=== PATIENT | female | born 1965 | race Two or more races ===

== ENCOUNTER 2022-04-20 11:59 | Emergency (ER) | payer MEDICARE, MEDICAID, SELFPAY ==
--- NOTE | ~2022-04-20 | CT_ITS ---
EXAMINATION: CTA CHEST CT ABDOMEN AND PELVIS WITH CONTRAST CLINICAL INFORMATION: Shortness of breath. Abdominal pain. Nausea and vomiting. COMPARISON: Ultrasound of abdomen 04/20/2022 TECHNIQUE: A noncontrast localizer was performed, followed by the administration of 85 mL Omnipaque [address] of the chest was then performed. Coronal and sagittal reformatted and 3-D technique MIP images of the chest were completed at the CT scanner and reviewed on the PACS workstation. No adverse effects were reported. Images were then performed through the abdomen and pelvis. Coronal and sagittal reformatted images performed at CT scanner by technologist. [This CT examination was performed using dose optimization techniques as appropriate, variously including the following: *Automated exposure control *Adjustment of mA and/or kV according to patient size (this includes techniques or standardized protocols for targeted exams where dose is matched to indication/reason for exam; i.e. extremities or head) *Use of iterative reconstruction technique] DLP: 676 mGy-cm. FINDINGS: Breathing motion limits exam. CTA CHEST Vascular: The main pulmonary artery, secondary and tertiary branches of the pulmonary artery are normally opacified with no evidence of pulmonary embolism. Mediastinum: There is significant cardiomegaly. Contrast reflux into the inferior vena cava and hepatic veins to the elevated right heart pressure. No evidence of septal bowing however. There is no pericardial effusion. No mediastinal mass or significant lymphadenopathy. Thyroid unremarkable. CORONARY ARTERIES: Volume of coronary calcification:Small volume of coronary artery calcification. Lungs: Breathing motion limits exam. There are a few small scattered groundglass opacities in the lungs bilaterally likely infectious or inflammatory etiology. There is linear atelectasis at both lung bases. Fluid: Bilateral pleural effusions. Moderate volume on the right and small on the left. Axilla: No significant lymphadenopathy. CT SCAN ABDOMEN/PELVIS: Liver, Gallbladder and Biliary Tree: The liver is normal in size, shape, and attenuation. Right lobe of liver measures 17 cm superior inferior. Vague area of enhancement at the posterior right lobe and left lobe of liver subcapsular lesion without evidence of distinct mass or lesion. This is likely transient enhancement.. No focal hepatic lesion or biliary ductal dilatation is present. Gallbladder partially distended. There is fluid around the gallbladder gallbladder fossa. This raises concern for acute cholecystitis. The fluid does extend down to the duodenal sweep. Pancreas: Pancreas is of normal size and contour without evidence of mass or peripancreatic duct dilatation. Spleen: Spleen is of normal size. Small volume of low attenuating fluid along the inferior splenic margin. Adrenal Glands: Right adrenal gland is normal. Left adrenal gland not well seen due to motion. Kidneys and Ureters: Left kidney is atrophic with decreased enhancement of the parenchyma compared to the right kidney. Right kidney measures 8.9 cm in length. The left kidney measures 7.8 cm. No hydronephrosis. No renal or ureteral stone. Bladder: Unremarkable. Gastrointestinal Tract: There are scattered diverticula of the colon. There is no diverticulitis. There is no bowel wall thickening /edema. There is no bowel obstruction. There is a moderate to large volume of stool in the colon. The appendix is nonvisualized . The small bowel loops are unremarkable. The stomach is normal. There is no hiatal hernia. MESENTERY: Fluid around the gallbladder and extending along the duodenal sleep anterior to the spleen. Small volume of fluid in the cul-de-sac. No focal mass or inflammation. No free air. Abdominal Wall: No significant hernia is appreciated. Lymph Nodes: Normal. Vascular: Atherosclerotic vascular calcifications of aorta and iliac arteries. No aneurysm. Pelvic Viscera: Unremarkable. Osseous Structures: Unremarkable. CT/CT angio chest PE protocol IMPRESSION: CT CHEST: 1. No evidence of pulmonary embolism. 2. Bilateral pleural effusions. Bibasilar atelectasis. 3. Cardiomegaly. Elevated right heart pressure. CT ABDOMEN PELVIS: 1. Fluid around the gallbladder fossa and extending along the duodenal sweep. This raises concern for acute cholecystitis. 2. Small volume of fluid in the cul-de-sac. 3. Atrophic left kidney. 4. Diverticulosis of the colon. There is no acute abnormality of the bowel.
--- NOTE | ~2022-04-20 | US_ITS ---
EXAMINATION: US ABDOMEN COMPLETE CLINICAL INFORMATION: Nausea, vomiting and abdominal pain. COMPARISON: None TECHNIQUE: Real-time imaging of the abdominal viscera. This study is limited secondary to the patient's inability to adequately move. FINDINGS: PANCREAS: Normal. ABDOMINAL AORTA: The proximal and mid segments are normal in caliber. The distal aorta was obscured by bowel gas INFERIOR VENA CAVA: Visualized portions are normal. LIVER: Normal. The liver is normal in size. The liver contour is normal. Parenchymal echogenicity is normal. No focal hepatic lesion. There is no intrahepatic biliary duct dilatation seen. GALLBLADDER: There is fluid present in the wall of the gallbladder which is thickened at 0.9 cm. No gallstones are seen. Alfonso's sign is negative. COMMON BILE DUCT: Normal in caliber measuring 0.4 cm in diameter. RIGHT KIDNEY: No hydronephrosis. No renal calculi or focal parenchymal lesions. The kidney measures 8.6 cm in maximum dimension. LEFT KIDNEY: No hydronephrosis. No renal calculi or focal parenchymal lesions. The kidney measures 7.1 cm in maximum dimension. SPLEEN: Normal. The spleen measures 5.6 cm in maximum dimension. FREE FLUID: No ascites. Right and left pleural effusions are seen.. US/US abdomen complete IMPRESSION: 1. Thickened edematous gallbladder wall with fluid in the wall. No gallstones are seen. Negative Alfonso's sign. Findings are concerning for acalculous cholecystitis. HIDA scan may be useful. 2. Bilateral pleural effusions.
--- NOTE | ~2022-04-20 | XR_ITS ---
EXAMINATION: XR CHEST CLINICAL INFORMATION: Anxiety, chest pain, shortness of breath, nausea and vomiting COMPARISON: None TECHNIQUE: 2 views of the chest were obtained. FINDINGS: There is mild cardiomegaly. There is a suggestion of some mild upper zone redistribution. The lungs are mildly hyperinflated. Bibasilar infiltrates/atelectasis present. No pleural effusions are seen. There are some mild thickening of the minor fissure. XR/XR chest 2V IMPRESSION: Mild cardiomegaly with question of mild pulmonary vascular congestion. Bibasilar infiltrates/atelectasis.
[2022-04-20 12:03] VITALS: BP 139/91; PULSE 96; O2SAT 98
[2022-04-20 12:06] VITALS: BP 104/81; PULSE 110; RESP 22; TEMP 35.7; O2SAT 97; BMI 25.2
--- NOTE | 2022-04-20 12:08 | ED_ITS ---
HPI - Anxiety General Chief Complaint: Anxiety Stated Complaint: ANXIETY, SOB Time Seen by Provider: 04/20/22 13:14 Related Data Home Medications Medication Instructions Recorded Confirmed atorvastatin 80 mg tablet 1 tab PO DAILY 04/20/22 bisoprolol fumarate 10 mg tablet 1 tab PO DAILY 04/20/22 bupropion HCl 150 mg tablet,12 hr 1 tab PO QAM 04/20/22 sustained-release citalopram 20 mg tablet 1 tab PO DAILY 04/20/22 clopidogrel 75 mg tablet 1 tab PO DAILY 04/20/22 fluticasone fur. 200 mcg-umeclid 1 puff inhalation DAILY 04/20/22 62.5 mcg-vilant 25 mcg inhalat.powder (Trelegy Ellipta) furosemide 20 mg tablet 1 tab PO BID blood pressure 04/20/22 gabapentin 300 mg capsule 1 cap PO TID 04/20/22 lisinopril 10 mg tablet 1 tab PO DAILY 04/20/22 olanzapine 10 mg tablet 1 tab PO DAILY 04/20/22 pantoprazole 40 mg tablet,delayed 1 tab PO BID 04/20/22 release potassium chloride 20 mEq 1 tab PO DAILY 04/20/22 tablet,extended release tramadol 50 mg tablet 1 tab PO BID PRN Pain 04/20/22 trazodone 50 mg tablet 1 tab PO DAILY 04/20/22 verapamil 180 mg 24 hr 1 cap PO DAILY 04/20/22 capsule,extended release warfarin 1 mg tablet 1 tab PO DAILY 04/20/22 warfarin 3 mg tablet 1 tab PO DAILY 04/20/22 Allergies Allergy/AdvReac Type Severity Reaction Status Date / Time No Known Allergies Allergy Verified 04/20/22 12:09 [facility] Social History Social History Alcohol intake: current Smoked in Last 30 Days: Yes Use of substances other than those prescribed or required for medical reasons: Refusing to respond Advance Directives: No Advance Directives Information Provided: No Physical Exam Vital Signs: Vital Signs: Last Vital Signs Temp 98.2 F 04/20/22 16:12 Pulse 112 H 04/20/22 16:12 Resp 34 H 04/20/22 16:12 BP 150/43 H 04/20/22 16:12 Pulse Ox 93 04/20/22 16:12 O2 Del Method 04/20/22 16:12 BMI result Body Mass Index 25.2 Course Course Course Narrative: TRACY-12:20PM - 57-year-old female with a past medical history of anxiety not on any medication presenting to the ER more multiple complaints which include generalized fatigue/malaise with increasing anxiety along with nausea/vomiting and chest tightness for the past 2 weeks worse today. Reports she is unable to keep anything down. Denies any SI/HI/auditory visual hallucinations or thoughts of self-injury. Reports that she smokes marijuana denies any other drug usage. Denies any alcohol usage. Denies any other symptoms complaints or concerns at this time. Plan: Will obtain labs, COVID/RSV/flu swab, chest x-ray and EKG. Patient will be sent to the waiting room to be evaluated in the ED. Medications Administered Discontinued Medications Generic Name Dose Route Start Last Admin Trade Name Freq PRN Reason Stop Dose Admin Phytonadione 10 mg/ Sodium 51 mls @ 51 mls/hr 04/20/22 15:06 04/20/22 16:34 Chloride IV 04/20/22 16:05 Infused ONCE ONE Infusion Iohexol 100 ml 04/20/22 14:56 04/20/22 14:57 Iohexol 350 Mg/Ml 100 Ml Infus..Btl IV 04/20/22 14:57 85 ml ONCE ONE Administration Lorazepam 0.5 mg 04/20/22 14:38 04/20/22 14:40 Lorazepam 2 Mg/Ml Vial IVPUSH 04/20/22 14:39 0.5 mg ONCE ONE Administration Medical Decision Making Lab Data 04/20/22 12:20 04/20/22 12:20 Labs: Lab Results 04/20/22 04/20/22 04/20/22 Range/Units 12:20 12:20 12:20 WBC 13.7 H (4.8-10.8) X10*3/uL RBC 3.23 L (4.20-5.50) X10*6/uL Hgb 10.1 L (12.0-16.0) g/dl Hct 30.8 L (37.0-47.0) % MCV 95.4 (80.0-98.0) fL MCH 31.3 (27.0-33.0) pg MCHC 32.8 (31.0-35.0) g/dl RDW 15.7 (11.0-16.0) % Plt Count 284 (160-400) X10*3/uL MPV 10.3 (9.4-12.3) fL Immature Gran % (Auto) 0.6 H (0.0-0.4) % Neut % (Auto) 75.9 H (45-73) % Lymph % (Auto) 15.2 L (20-40) % Prentiss % (Auto) 7.9 (2-11) % Eos % (Auto) 0.1 (0-4) % Baso % (Auto) 0.3 (0-2) % Lymph # (Auto) 2.1 (1.2-4.9) X10*3/uL Prentiss # (Auto) 1.1 (0.1-1.2) X10*3/uL Eos # (Auto) 0.0 (0.0-0.4) X10*3/uL Baso # (Auto) 0.0 (0.0-0.2) X10*3/uL Abs Immat Gran (auto) 0.08 H (0.00-0.03) X10*3/uL Absolute Neuts (auto) 10.4 H (2.0-8.3) x10*3/uL Absolute Nucleated RBC 0.000 (0.0-0.012) X10*3/uL Nucleated RBC % (auto) 0.0 (0.0-0.2) /100WBC PT 171.9 H (10.0-13.1) SEC INR 13.4 H* (0.9-1.1) O2 Saturation % ABG pH at Pt Temp (7.35-7.45) ABG pCO2 at Pt Temp (32-45) mmHg ABG pO2 at Pt Temp (83-108) mmHg ABG HCO3 (22-26) mmol/L ABG Base Excess (Actual) mmol/L Sodium 134 L (135-145) mmol/L Potassium 5.6 H (3.3-5.1) mmol/L Chloride 104 (96-108) mmol/L Carbon Dioxide 18 L (22-29) mmol/L Anion Gap 18 (12-20) BUN 14 (9-16) mg/dL Creatinine 1.55 H (0.5-1.4) mg/dL Estim Creat Clear Calc 32.8 Estimated GFR 35 Random Glucose 111 (60-115) mg/dL Lactic Acid (0.5-2.0) mmol/L Lactic Acid F/U @ 2Hr (0.5-2.0) mmol/L Calcium 9.4 (8.4-10.2) mg/dL Magnesium 1.9 (1.6-2.6) mg/dL Total Bilirubin 1.6 H (0.0-1.0) mg/dL AST 1833 H (5-31) U/L ALT 1070 H (0-31) U/L Alkaline Phosphatase 84 (39-117) U/L Troponin I High Sens (<3.5-17.0) ng/L Total Protein 6.4 L (6.5-8.0) g/dL Albumin 3.8 (3.5-5.0) g/dL Lipase 23 (8-78) U/L Acetaminophen (<30) mcg/mL Ethyl Alcohol mg/dL Influenza Type A (PCR) (Negative) Influenza Type B (PCR) (Negative) RSV RNA Qual (PCR) (Negative) SARS-CoV-2 RNA (RT-PCR) (Negative) 04/20/22 04/20/22 04/20/22 Range/Units 12:20 12:20 13:24 WBC (4.8-10.8) X10*3/uL RBC (4.20-5.50) X10*6/uL Hgb (12.0-16.0) g/dl Hct (37.0-47.0) % MCV (80.0-98.0) fL MCH (27.0-33.0) pg MCHC (31.0-35.0) g/dl RDW (11.0-16.0) % Plt Count (160-400) X10*3/uL MPV (9.4-12.3) fL Immature Gran % (Auto) (0.0-0.4) % Neut % (Auto) (45-73) % Lymph % (Auto) (20-40) % Prentiss % (Auto) (2-11) % Eos % (Auto) (0-4) % Baso % (Auto) (0-2) % Lymph # (Auto) (1.2-4.9) X10*3/uL Prentiss # (Auto) (0.1-1.2) X10*3/uL Eos # (Auto) (0.0-0.4) X10*3/uL Baso # (Auto) (0.0-0.2) X10*3/uL Abs Immat Gran (auto) (0.00-0.03) X10*3/uL Absolute Neuts (auto) (2.0-8.3) x10*3/uL Absolute Nucleated RBC (0.0-0.012) X10*3/uL Nucleated RBC % (auto) (0.0-0.2) /100WBC PT (10.0-13.1) SEC INR (0.9-1.1) O2 Saturation % ABG pH at Pt Temp (7.35-7.45) ABG pCO2 at Pt Temp (32-45) mmHg ABG pO2 at Pt Temp (83-108) mmHg ABG HCO3 (22-26) mmol/L ABG Base Excess (Actual) mmol/L Sodium (135-145) mmol/L Potassium (3.3-5.1) mmol/L Chloride (96-108) mmol/L Carbon Dioxide (22-29) mmol/L Anion Gap (12-20) BUN (9-16) mg/dL Creatinine (0.5-1.4) mg/dL Estim Creat Clear Calc Estimated GFR Random Glucose (60-115) mg/dL Lactic Acid (0.5-2.0) mmol/L Lactic Acid F/U @ 2Hr (0.5-2.0) mmol/L Calcium (8.4-10.2) mg/dL Magnesium (1.6-2.6) mg/dL Total Bilirubin (0.0-1.0) mg/dL AST (5-31) U/L ALT (0-31) U/L Alkaline Phosphatase (39-117) U/L Troponin I High Sens 16.6 (<3.5-17.0) ng/L Total Protein (6.5-8.0) g/dL Albumin (3.5-5.0) g/dL Lipase (8-78) U/L Acetaminophen < 17 (<30) mcg/mL Ethyl Alcohol < 10 mg/dL Influenza Type A (PCR) NEGATIVE (Negative) Influenza Type B (PCR) NEGATIVE (Negative) RSV RNA Qual (PCR) NEGATIVE (Negative) SARS-CoV-2 RNA (RT-PCR) NEGATIVE (Negative) 04/20/22 04/20/22 04/20/22 Range/Units 13:24 15:18 15:53 WBC (4.8-10.8) X10*3/uL RBC (4.20-5.50) X10*6/uL Hgb (12.0-16.0) g/dl Hct (37.0-47.0) % MCV (80.0-98.0) fL MCH (27.0-33.0) pg MCHC (31.0-35.0) g/dl RDW (11.0-16.0) % Plt Count (160-400) X10*3/uL MPV (9.4-12.3) fL Immature Gran % (Auto) (0.0-0.4) % Neut % (Auto) (45-73) % Lymph % (Auto) (20-40) % Prentiss % (Auto) (2-11) % Eos % (Auto) (0-4) % Baso % (Auto) (0-2) % Lymph # (Auto) (1.2-4.9) X10*3/uL Prentiss # (Auto) (0.1-1.2) X10*3/uL Eos # (Auto) (0.0-0.4) X10*3/uL Baso # (Auto) (0.0-0.2) X10*3/uL Abs Immat Gran (auto) (0.00-0.03) X10*3/uL Absolute Neuts (auto) (2.0-8.3) x10*3/uL Absolute Nucleated RBC (0.0-0.012) X10*3/uL Nucleated RBC % (auto) (0.0-0.2) /100WBC PT (10.0-13.1) SEC INR (0.9-1.1) O2 Saturation 94.0 % ABG pH at Pt Temp 7.32 L (7.35-7.45) ABG pCO2 at Pt Temp 22 L (32-45) mmHg ABG pO2 at Pt Temp 85 (83-108) mmHg ABG HCO3 12 L (22-26) mmol/L ABG Base Excess (Actual) -12.0 mmol/L Sodium (135-145) mmol/L Potassium (3.3-5.1) mmol/L Chloride (96-108) mmol/L Carbon Dioxide (22-29) mmol/L Anion Gap (12-20) BUN (9-16) mg/dL Creatinine (0.5-1.4) mg/dL Estim Creat Clear Calc Estimated GFR Random Glucose (60-115) mg/dL Lactic Acid 8.7 H* (0.5-2.0) mmol/L Lactic Acid F/U @ 2Hr 10.3 H* (0.5-2.0) mmol/L Calcium (8.4-10.2) mg/dL Magnesium (1.6-2.6) mg/dL Total Bilirubin (0.0-1.0) mg/dL AST (5-31) U/L ALT (0-31) U/L Alkaline Phosphatase (39-117) U/L Troponin I High Sens (<3.5-17.0) ng/L Total Protein (6.5-8.0) g/dL Albumin (3.5-5.0) g/dL Lipase (8-78) U/L Acetaminophen (<30) mcg/mL Ethyl Alcohol mg/dL Influenza Type A (PCR) (Negative) Influenza Type B (PCR) (Negative) RSV RNA Qual (PCR) (Negative) SARS-CoV-2 RNA (RT-PCR) (Negative) Discharge Plan Discharge Clinical Impression: Acute liver failure Patient Disposition: [facility] Transfer Details: Patient transferred to [facility]. Prescriptions: No Action bupropion HCl 150 mg tablet sustained-release 12 hr 1 tab PO QAM atorvastatin 80 mg tablet 1 tab PO DAILY trazodone 50 mg tablet 1 tab PO DAILY olanzapine 10 mg tablet 1 tab PO DAILY clopidogrel 75 mg tablet 1 tab PO DAILY tramadol 50 mg tablet 1 tab PO BID PRN (Reason: Pain) bisoprolol fumarate 10 mg tablet 1 tab PO DAILY warfarin 3 mg tablet 1 tab PO DAILY verapamil 180 mg capsule,ext rel. pellets 24 hr 1 cap PO DAILY citalopram 20 mg tablet 1 tab PO DAILY pantoprazole 40 mg tablet,delayed release (DR/EC) 1 tab PO BID lisinopril 10 mg tablet 1 tab PO DAILY gabapentin 300 mg capsule 1 cap PO TID furosemide 20 mg tablet 1 tab PO BID warfarin 1 mg tablet 1 tab PO DAILY potassium chloride 20 mEq tablet extended release 1 tab PO DAILY Trelegy Ellipta 200-62.5-25 mcg blister with device 1 puff inhalation DAILY Interventions: Acute Care Transfer Worksheet (ED) Last Done: 04/20/22 17:17 Discharge Date/Time: 04/20/22 17:17
--- NOTE | 2022-04-20 12:09 | ECG_ITS ---
Test Reason : sob Blood Pressure : / mmHG Vent. Rate : 102 BPM Atrial Rate : 000 BPM P-R Int : 000 ms QRS Dur : 076 ms QT Int : 356 ms P-R-T Axes : 000 088 139 degrees QTc Int : 463 ms Atrial fibrillation with rapid ventricular response Anteroseptal infarct , age undetermined Abnormal ECG No previous ECGs available Referred By: Rita Kidd Electronically Signed By:MIKE LALA MD
[2022-04-20 12:36] LABS: MANUAL DIFF FLAG NO
[2022-04-20 12:38] LABS: Basophils Percent Auto 0.3 % (0-2); Eosinophils Percent Auto 0.1 % (0-4); Hematocrit 30.8 % (37.0-47.0); Hemoglobin 10.1 g/dl (12.0-16.0); Imm Gran Abs Auto 0.08 X10*3/uL (0.00-0.03); Imm Gran Pct Auto 0.6 % (0.0-0.4); Lymphocytes Absolute Auto 2.1 X10*3/uL (1.2-4.9); Lymphocytes Percent Auto 15.2 % (20-40); Mean Corpuscular HGB Conc 32.8 g/dl (31.0-35.0); Mean Corpuscular Hemoglobin 31.3 pg (27.0-33.0); Mean Corpuscular Volume 95.4 fL (80.0-98.0); Mean Platelet Volume 10.3 fL (9.4-12.3); Monocytes Absolute Auto 1.1 X10*3/uL (0.1-1.2); Monocytes Percent Auto 7.9 % (2-11); Neutrophils Absolute Auto 10.4 x10*3/uL (2.0-8.3); Neutrophils Percent Auto 75.9 % (45-73); Platelet Count 284 X10*3/uL (160-400); Red Blood Count 3.23 X10*6/uL (4.20-5.50); Red Cell Distribution Width 15.7 % (11.0-16.0); White Blood Count 13.7 X10*3/uL (4.8-10.8)
[2022-04-20 12:52] LABS: Ethanol < 10 mg/dL
[2022-04-20 12:55] LABS: Alanine Aminotransferase 1070 U/L (0-31); Albumin Level 3.8 g/dL (3.5-5.0); Alkaline Phosphatase 84 U/L (39-117); Aspartate Amino Transferase 1833 U/L (5-31); Bilirubin Total 1.6 mg/dL (0.0-1.0); Blood Urea Nitrogen 14 mg/dL (9-16); Calcium 9.4 mg/dL (8.4-10.2); Creatinine Clr Calc Pharmacy 32.8; Estimated Glomerular Filt Rate 35; Glucose Random 111 mg/dL (60-115); Magnesium 1.9 mg/dL (1.6-2.6); Total Protein 6.4 g/dL (6.5-8.0)
[2022-04-20 13:12] LABS: Prothrombin Time 171.9 SEC (10.0-13.1)
[2022-04-20 13:15] LABS: Anion Gap 18 (12-20); Carbon Dioxide 18 mmol/L (22-29); Chloride 104 mmol/L (96-108); Potassium 5.6 mmol/L (3.3-5.1); Sodium 134 mmol/L (135-145)
[2022-04-20 13:16] LABS: Influenza A PCR NEGATIVE (Negative); Influenza B PCR NEGATIVE (Negative); Resp Syncy Virus RNA Qual PCR NEGATIVE (Negative); SARS COV2 PCR INHOUSE NEGATIVE (Negative)
[2022-04-20 13:24] LABS: INTERNATIONAL NORM RATIO 13.4 (0.9-1.1)
--- NOTE | 2022-04-20 13:35 | PC.NURSE ---
57 y/o F pw anxiety to ED with associated n/v and chest tightness. pt has hx of anxiety. ilicit lab finding of elevated liver enzymes, plan for abd US. IV in place, additional labs drawn and sent, awaiting further recs. pt aox3, calm and cooperative, VSS at this time.
--- NOTE | 2022-04-20 13:52 | ED_ITS ---
HPI - Anxiety General Chief Complaint: Anxiety Stated Complaint: ANXIETY, SOB Time Seen by Provider: 04/20/22 13:14 History of Present Illness HPI narrative: Patient is a 57-year-old female with a history of atrial fibrillation. She feels very anxious. She has stated that she is breathing heavy, feeling short of breath. Patient not feeling well. Associated with nausea vomiting unable to tolerate fluids. Patient denies noticing any black stool. No coughing or congestion or upper respiratory symptoms. Vaccinated for COVID. No abdominal surgery done in the past. Patient denies any alcohol abuse. No history of hepatitis. Has been compliant with her Coumadin. Patient takes it for atrial fibrillation. Had not had any trauma. Denies hitting her head. Patient is from home. Presented today because she had increasing anxiety and because she had nausea vomiting unable to keep down fluids. Related Data Home Medications Medication Instructions Recorded Confirmed atorvastatin 80 mg tablet 1 tab PO DAILY 04/20/22 bisoprolol fumarate 10 mg tablet 1 tab PO DAILY 04/20/22 bupropion HCl 150 mg tablet,12 hr 1 tab PO QAM 04/20/22 sustained-release citalopram 20 mg tablet 1 tab PO DAILY 04/20/22 clopidogrel 75 mg tablet 1 tab PO DAILY 04/20/22 fluticasone fur. 200 mcg-umeclid 1 puff inhalation DAILY 04/20/22 62.5 mcg-vilant 25 mcg inhalat.powder (Trelegy Ellipta) furosemide 20 mg tablet 1 tab PO BID blood pressure 04/20/22 gabapentin 300 mg capsule 1 cap PO TID 04/20/22 lisinopril 10 mg tablet 1 tab PO DAILY 04/20/22 olanzapine 10 mg tablet 1 tab PO DAILY 04/20/22 pantoprazole 40 mg tablet,delayed 1 tab PO BID 04/20/22 release potassium chloride 20 mEq 1 tab PO DAILY 04/20/22 tablet,extended release tramadol 50 mg tablet 1 tab PO BID PRN Pain 04/20/22 trazodone 50 mg tablet 1 tab PO DAILY 04/20/22 verapamil 180 mg 24 hr 1 cap PO DAILY 04/20/22 capsule,extended release warfarin 1 mg tablet 1 tab PO DAILY 04/20/22 warfarin 3 mg tablet 1 tab PO DAILY 04/20/22 Allergies Allergy/AdvReac Type Severity Reaction Status Date / Time No Known Allergies Allergy Verified 04/20/22 12:09 Review of Systems Review of Systems: Positive shortness of breath positive nausea vomiting no diarrhea no bloody stool Yes all other systems are reviewed and are negative [facility] Past Medical History Attestation statement: The following information was validated with the patient. Social History Social History Alcohol intake: current Smoked in Last 30 Days: Yes Use of substances other than those prescribed or required for medical reasons: Refusing to respond Advance Directives: No Advance Directives Information Provided: No Physical Exam Vital Signs: Vital Signs: Last Vital Signs Temp 96.3 F L 04/20/22 12:06 Pulse 110 H 04/20/22 12:06 Resp 22 H 04/20/22 12:06 BP 104/81 04/20/22 12:06 Pulse Ox 97 04/20/22 12:06 O2 Del Method 04/20/22 12:06 BMI result Body Mass Index 25.2 Appearance: Alert. Oriented X3. anxious breathing fast Eyes: Pupils equal, round and reactive to light. ENT: Pharynx normal. Neck: Normal inspection. Neck supple. No lymph nodes noted. No crepitus CVS: Normal heart rate and rhythm. Pulses normal. Normal S1 and S2 Respiratory: No respiratory distress. Breath sounds normal. No Wheezing. No rales Abdomen: soft nontender liver edge grossly enlarged at least 4-5 fingerbreadths below costal margin, positive bowel sounds Skin: Skin warm and dry. Normal skin color. Normal skin turgor. Extremities: No lower extremity edema. Neurovascular intact to all extremities. No Lacerations. No Rash Neuro: Oriented X 3. No motor deficit. No sensory deficit. Moving all extermities. No slurred speech Medications Administered Discontinued Medications Generic Name Dose Route Start Last Admin Trade Name Freq PRN Reason Stop Dose Admin Iohexol 100 ml 04/20/22 14:56 04/20/22 14:57 Iohexol 350 Mg/Ml 100 Ml Infus..Btl IV 04/20/22 14:57 85 ml ONCE ONE Administration Lorazepam 0.5 mg 04/20/22 14:38 04/20/22 14:40 Lorazepam 2 Mg/Ml Vial IVPUSH 04/20/22 14:39 0.5 mg ONCE ONE Administration Medical Decision Making Differential Diagnosis patient had shortness of breath. Nausea vomiting. Cannot exclude the possibility of obstruction. Patient's LFT show significant elevation and AST and ALT In the thousands range. She denies any history of alcohol abuse. Her alcohol level is undetectable. No history of recreational drug use. Patient unsure about her hepatitis Status. Hepatitis panel was ordered. Tylenol level was undetectable COVID RSV flu all negative. Patient's lungs are clear. INR is 13. Patient has been compliant with her Coumadin For atrial fibrillation. Making PE unlikely. Her chest x-ray was interpreted by Radiology as no focal infiltrate. Question mild congestion. A BNP was added. CT scan of the abdomen was ordered for possible obstruction as patient has continue nausea vomiting unable to tolerate p.o. patient's hemoglobin is 10 which is about stable. The elevated INR was treated with a dose of vitamin K as there is no acute bleeding. Ultrasound was done. It showed some mild pericholecystic fluid. There is no dilated common bile duct noted. CT scan of the abdomen pelvis showed a question cholecystitis. Although this finding is not consistent with patient's elevated LFTs. Her alcohol level was negative. Her Tylenol level was negative. Her hepatitis panel is pending. Patient has a lactate of 8.4 most likely secondary to liver failure. Patient's has a ABG consistent with having compensated metabolic acidosis with a pH of 7.32 with a pCO2 of 22 with a PA O2 that was normal. Finding was discussed with Dr. Azevedo of GI at [facility]. [place] this patient is beyond the capability of our hospital. Wanted patient to be transferred to a transplant center of Excellence. The case was discussed with [facility]. Completely full unable to accept patient. Case discussed with [facility] transfer line. Excepted to Dr. Holman service in the emergency department. Risk and benefit of transfer discussed with patient. Son present additional history obtained through the son. Patient is currently in critical condition. CTA of the chest showed no evidence of PE did showed some mild pleural effusion noted. The imaging will be sent. Admission/Observation Consideration of admission/observation: Escalation of care including admission/observation considered Patient to be transferred to [facility] Consult Healthcare Provider Management of the patient was discussed with: Sanitarian Inspector case discussed with Dr. Azevedo from GI. Case discussed with transfer center at [place]. Case discussed with transfer center at [facility]. Lab Data MDM Lab Attestation statement: I reviewed the patient's lab results. 04/20/22 12:20 04/20/22 12:20 Labs: Lab Results 04/20/22 04/20/22 04/20/22 Range/Units 12:20 12:20 12:20 WBC 13.7 H (4.8-10.8) X10*3/uL RBC 3.23 L (4.20-5.50) X10*6/uL Hgb 10.1 L (12.0-16.0) g/dl Hct 30.8 L (37.0-47.0) % MCV 95.4 (80.0-98.0) fL MCH 31.3 (27.0-33.0) pg MCHC 32.8 (31.0-35.0) g/dl RDW 15.7 (11.0-16.0) % Plt Count 284 (160-400) X10*3/uL MPV 10.3 (9.4-12.3) fL Immature Gran % (Auto) 0.6 H (0.0-0.4) % Neut % (Auto) 75.9 H (45-73) % Lymph % (Auto) 15.2 L (20-40) % [place] % (Auto) 7.9 (2-11) % Eos % (Auto) 0.1 (0-4) % Baso % (Auto) 0.3 (0-2) % Lymph # (Auto) 2.1 (1.2-4.9) X10*3/uL [place] # (Auto) 1.1 (0.1-1.2) X10*3/uL Eos # (Auto) 0.0 (0.0-0.4) X10*3/uL Baso # (Auto) 0.0 (0.0-0.2) X10*3/uL Abs Immat Gran (auto) 0.08 H (0.00-0.03) X10*3/uL Absolute Neuts (auto) 10.4 H (2.0-8.3) x10*3/uL Absolute Nucleated RBC 0.000 (0.0-0.012) X10*3/uL Nucleated RBC % (auto) 0.0 (0.0-0.2) /100WBC PT 171.9 H (10.0-13.1) SEC INR 13.4 H* (0.9-1.1) O2 Saturation % ABG pH at Pt Temp (7.35-7.45) ABG pCO2 at Pt Temp (32-45) mmHg ABG pO2 at Pt Temp (83-108) mmHg ABG HCO3 (22-26) mmol/L ABG Base Excess (Actual) mmol/L Sodium 134 L (135-145) mmol/L Potassium 5.6 H (3.3-5.1) mmol/L Chloride 104 (96-108) mmol/L Carbon Dioxide 18 L (22-29) mmol/L Anion Gap 18 (12-20) BUN 14 (9-16) mg/dL Creatinine 1.55 H (0.5-1.4) mg/dL Estim Creat Clear Calc 32.8 Estimated GFR 35 Random Glucose 111 (60-115) mg/dL Lactic Acid (0.5-2.0) mmol/L Calcium 9.4 (8.4-10.2) mg/dL Magnesium 1.9 (1.6-2.6) mg/dL Total Bilirubin 1.6 H (0.0-1.0) mg/dL AST 1833 H (5-31) U/L ALT 1070 H (0-31) U/L Alkaline Phosphatase 84 (39-117) U/L Troponin I High Sens (<3.5-17.0) ng/L Total Protein 6.4 L (6.5-8.0) g/dL Albumin 3.8 (3.5-5.0) g/dL Lipase 23 (8-78) U/L Acetaminophen (<30) mcg/mL Ethyl Alcohol mg/dL Influenza Type A (PCR) (Negative) Influenza Type B (PCR) (Negative) RSV RNA Qual (PCR) (Negative) SARS-CoV-2 RNA (RT-PCR) (Negative) 04/20/22 04/20/22 04/20/22 Range/Units 12:20 12:20 13:24 WBC (4.8-10.8) X10*3/uL RBC (4.20-5.50) X10*6/uL Hgb (12.0-16.0) g/dl Hct (37.0-47.0) % MCV (80.0-98.0) fL MCH (27.0-33.0) pg MCHC (31.0-35.0) g/dl RDW (11.0-16.0) % Plt Count (160-400) X10*3/uL MPV (9.4-12.3) fL Immature Gran % (Auto) (0.0-0.4) % Neut % (Auto) (45-73) % Lymph % (Auto) (20-40) % [place] % (Auto) (2-11) % Eos % (Auto) (0-4) % Baso % (Auto) (0-2) % Lymph # (Auto) (1.2-4.9) X10*3/uL [place] # (Auto) (0.1-1.2) X10*3/uL Eos # (Auto) (0.0-0.4) X10*3/uL Baso # (Auto) (0.0-0.2) X10*3/uL Abs Immat Gran (auto) (0.00-0.03) X10*3/uL Absolute Neuts (auto) (2.0-8.3) x10*3/uL Absolute Nucleated RBC (0.0-0.012) X10*3/uL Nucleated RBC % (auto) (0.0-0.2) /100WBC PT (10.0-13.1) SEC INR (0.9-1.1) O2 Saturation % ABG pH at Pt Temp (7.35-7.45) ABG pCO2 at Pt Temp (32-45) mmHg ABG pO2 at Pt Temp (83-108) mmHg ABG HCO3 (22-26) mmol/L ABG Base Excess (Actual) mmol/L Sodium (135-145) mmol/L Potassium (3.3-5.1) mmol/L Chloride (96-108) mmol/L Carbon Dioxide (22-29) mmol/L Anion Gap (12-20) BUN (9-16) mg/dL Creatinine (0.5-1.4) mg/dL Estim Creat Clear Calc Estimated GFR Random Glucose (60-115) mg/dL Lactic Acid (0.5-2.0) mmol/L Calcium (8.4-10.2) mg/dL Magnesium (1.6-2.6) mg/dL Total Bilirubin (0.0-1.0) mg/dL AST (5-31) U/L ALT (0-31) U/L Alkaline Phosphatase (39-117) U/L Troponin I High Sens 16.6 (<3.5-17.0) ng/L Total Protein (6.5-8.0) g/dL Albumin (3.5-5.0) g/dL Lipase (8-78) U/L Acetaminophen < 17 (<30) mcg/mL Ethyl Alcohol < 10 mg/dL Influenza Type A (PCR) NEGATIVE (Negative) Influenza Type B (PCR) NEGATIVE (Negative) RSV RNA Qual (PCR) NEGATIVE (Negative) SARS-CoV-2 RNA (RT-PCR) NEGATIVE (Negative) 04/20/22 04/20/22 Range/Units 13:24 15:18 WBC (4.8-10.8) X10*3/uL RBC (4.20-5.50) X10*6/uL Hgb (12.0-16.0) g/dl Hct (37.0-47.0) % MCV (80.0-98.0) fL MCH (27.0-33.0) pg MCHC (31.0-35.0) g/dl RDW (11.0-16.0) % Plt Count (160-400) X10*3/uL MPV (9.4-12.3) fL Immature Gran % (Auto) (0.0-0.4) % Neut % (Auto) (45-73) % Lymph % (Auto) (20-40) % [place] % (Auto) (2-11) % Eos % (Auto) (0-4) % Baso % (Auto) (0-2) % Lymph # (Auto) (1.2-4.9) X10*3/uL [place] # (Auto) (0.1-1.2) X10*3/uL Eos # (Auto) (0.0-0.4) X10*3/uL Baso # (Auto) (0.0-0.2) X10*3/uL Abs Immat Gran (auto) (0.00-0.03) X10*3/uL Absolute Neuts (auto) (2.0-8.3) x10*3/uL Absolute Nucleated RBC (0.0-0.012) X10*3/uL Nucleated RBC % (auto) (0.0-0.2) /100WBC PT (10.0-13.1) SEC INR (0.9-1.1) O2 Saturation 94.0 % ABG pH at Pt Temp 7.32 L (7.35-7.45) ABG pCO2 at Pt Temp 22 L (32-45) mmHg ABG pO2 at Pt Temp 85 (83-108) mmHg ABG HCO3 12 L (22-26) mmol/L ABG Base Excess (Actual) -12.0 mmol/L Sodium (135-145) mmol/L Potassium (3.3-5.1) mmol/L Chloride (96-108) mmol/L Carbon Dioxide (22-29) mmol/L Anion Gap (12-20) BUN (9-16) mg/dL Creatinine (0.5-1.4) mg/dL Estim Creat Clear Calc Estimated GFR Random Glucose (60-115) mg/dL Lactic Acid 8.7 H* (0.5-2.0) mmol/L Calcium (8.4-10.2) mg/dL Magnesium (1.6-2.6) mg/dL Total Bilirubin (0.0-1.0) mg/dL AST (5-31) U/L ALT (0-31) U/L Alkaline Phosphatase (39-117) U/L Troponin I High Sens (<3.5-17.0) ng/L Total Protein (6.5-8.0) g/dL Albumin (3.5-5.0) g/dL Lipase (8-78) U/L Acetaminophen (<30) mcg/mL Ethyl Alcohol mg/dL Influenza Type A (PCR) (Negative) Influenza Type B (PCR) (Negative) RSV RNA Qual (PCR) (Negative) SARS-CoV-2 RNA (RT-PCR) (Negative) Independent Interpretation I performed an independent interpretation of an: EKG Interpretation: Atrial fibrillation pattern heart rate is [address] segment depression over the V5 V6. There is Q-wave noted in the anterior And septal leads. There is no old EKG to compare. Radiology Impression Discussion of test interpretation with radiology: I have reviewed the radiologist's reading. External Record Review External record reviewed: Inpatient record Chronic Conditions Patient?s care impacted by: Hypertension Social Determinants Patient?s care significantly limited by Social Determinants of Health including: Problems related to primary support group Critical Care Time Critical Care Time Critical Care Time: Yes Total Critical Care Time: 40 Attestation: I have personally provided 40 minutes of critical care time exclusive of time spent on separately billable procedures. Time includes review of lab data, radiology results, discussion with consultants, and monitoring for potential decompensation. Interventions were performed as documented above Discharge Plan Discharge Clinical Impression: Acute liver failure Patient Disposition: [facility] Transfer Details: Patient transferred to [facility]. Prescriptions: No Action bupropion HCl 150 mg tablet sustained-release 12 hr 1 tab PO QAM atorvastatin 80 mg tablet 1 tab PO DAILY trazodone 50 mg tablet 1 tab PO DAILY olanzapine 10 mg tablet 1 tab PO DAILY clopidogrel 75 mg tablet 1 tab PO DAILY tramadol 50 mg tablet 1 tab PO BID PRN (Reason: Pain) bisoprolol fumarate 10 mg tablet 1 tab PO DAILY warfarin 3 mg tablet 1 tab PO DAILY verapamil 180 mg capsule,ext rel. pellets 24 hr 1 cap PO DAILY citalopram 20 mg tablet 1 tab PO DAILY pantoprazole 40 mg tablet,delayed release (DR/EC) 1 tab PO BID lisinopril 10 mg tablet 1 tab PO DAILY gabapentin 300 mg capsule 1 cap PO TID furosemide 20 mg tablet 1 tab PO BID warfarin 1 mg tablet 1 tab PO DAILY potassium chloride 20 mEq tablet extended release 1 tab PO DAILY Trelegy Ellipta 200-62.5-25 mcg blister with device 1 puff inhalation DAILY
[2022-04-20 14:17] LABS: Troponin-I High Sensitivity 16.6 ng/L (<3.5-17.0)
[2022-04-20 14:18] LABS: Lactic Acid 8.7 mmol/L (0.5-2.0)
[2022-04-20 14:40] LABS: Acetaminophen LAB < 17 mcg/mL (<30)
[2022-04-20] MEDS: LORazepam 2 MG/ML VIAL 0.5 MG IVPUSH (14:40)
--- NOTE | 2022-04-20 14:53 | PC.NURSE ---
pt labs concerning, plan for imaging and additional IV, pt on monitor.
[2022-04-20] MEDS: iohexoL 350 MG/ML 100 ML INFUS..BTL IV (14:57)
--- NOTE | 2022-04-20 15:01 | PC.NURSE ---
secondary 18G IV in place, pt placed on it auditor, imaging done, awaiting ABG via respiratory
[2022-04-20 15:04] LABS: Lipase 23 U/L (8-78)
--- NOTE | 2022-04-20 15:04 | PC.NURSE ---
respiratory at bedside
--- NOTE | 2022-04-20 15:15 | MHC.EDTECH ---
@[phone] called [facility] transfer per request of Dr. Lewis. Gave patient demographics to the confidential secretary. She asked to Dr. Lewis. Dr. Lewis took the call right away. Dr. Lewis notified me that [facility] could not accept the patient and requested I call [facility] transfer line.
--- NOTE | 2022-04-20 15:25 | MHC.EDTECH ---
@[phone] called [place] transfer to see if we could transfer the patient to them. The individual on the line took patient demographics from or. Then they requested to talk to Dr. Lewis. Dr. Lewis took the call right away.
[2022-04-20 15:26] LABS: ABG HCO3 12 mmol/L (22-26); ABG pCO2 22 mmHg (32-45); ABG pH 7.32 (7.35-7.45); ABG pO2 85 mmHg (83-108)
[2022-04-20 15:32] VITALS: O2SAT 94
[2022-04-20 15:33] LABS: Reflex Lactate? Lactic Acid Added
--- NOTE | 2022-04-20 15:36 | MHC.EDTECH ---
@[phone] I was notified by Dr. Lewis that the patient was accepted to [facility] ED. The accepting doctor is Dr. Holman. No nurse to nurse number was given.
[2022-04-20] MEDS: Phytonadione (Vit K1) 10 MG in 0.9 % Sodium Chloride 50 ML 51 MG IV (15:43)
[2022-04-20 16:12] VITALS: BP 150/43; PULSE 112; RESP 34; TEMP 36.8; O2SAT 93
[2022-04-20 16:12] LABS: ~Lactic Acid-LAB USE ONLY 10.3 mmol/L (0.5-2.0)
--- NOTE | 2022-04-20 16:21 | PC.NURSE ---
report given to journeyman power plant operator at [facility]
[2022-04-20 17:55] LABS: Reflex Lactate? 2 Y
[2022-04-21 10:20] LABS: HBS Num1 0.68 mIU/mL (0-7.99); HBc Num1 0.16 S/CO (0.00-0.79); HBsAGNum1 0.39 S/CO (0.00-0.99); Hepatitis A Antibody IgM 0.35 Index (0-0.79); Hepatitis B Core Antibody Nonreactive (Nonreactive); Hepatitis B Surface Antigen Negative (Negative); ~HepC Num1 0.13 S/CO (0.00-0.79); ~Hepatitis A Antibody IgM Nonreactive (Nonreactive); ~Hepatitis B Surface Antibody NONREACTIVE (Nonreactive); ~Hepatitis C Antibody Nonreactive (Nonreactive)
== END 2022-04-20 17:17 | disposition short-term general hospital (02) ==
PROVIDERS: Physician Assistant Medical; Emergency Provider Emergency Medicine Emergency Medical Services
DX: K72.00 Acute and subacute hepatic failure without coma (principal); R11.2 Nausea with vomiting, unspecified; F41.9 Anxiety disorder, unspecified; R06.02 Shortness of breath; I48.91 Unspecified atrial fibrillation; Z79.01 Long term (current) use of anticoagulants; Z79.899 Other long term (current) drug therapy; Z79.02 Long term (current) use of antithrombotics/antiplatelets; Z20.822 Contact with and (suspected) exposure to COVID-19; Z20.828 Contact with and (suspected) exposure to other viral communicable diseases
CPT/HCPCS: 0241U; 36415; 71046; 71275; 74177; 76700; 80053; 80143; 82077; 82803; 83605; 83690; 83735; 84484; 85025; 85610; 86704; 86706; 86709; 86803; 87040; 87340; 93005; 96365; 96375; 99285; J2060; J3430; Q9967